=== PATIENT | male | born 1940 | race Caucasian/White ===

== ENCOUNTER 2016-07-28 22:53 | Emergency (ER) | payer MEDICARE, OTHER ==
[2016-07-28 23:03] VITALS: BP 178/87
--- NOTE | 2016-07-28 23:07 | EDM.PDOC ---
ED HISTORY OF PRESENT ILLNESS - General Chief Complaint: Cardiovascular Problem Stated Complaint: HEART RACING Time Seen by Provider: 07/28/16 23:04 Source of Information: Reports: Patient History Limitations: Reports: No limitations - History of Present Illness INITIAL COMMENTS - FREE TEXT/NARRATIVE: c/o heart racing since last night not going away. denies CP/SOB per-se. had problem before awhile back. - Related Data Allergies/ADRs: Allergies Allergy/AdvReac Type Severity Reaction Status Date / Time No Known Allergies Allergy Verified 07/28/16 23:03 Home Meds: Home Meds Albuterol Sulfate [Proair Respiclick] 1 puff INH Q4HR PRN 12/27/14 [History] Albuterol [Ventolin HFA] 2 puff INH Q6HR PRN 12/27/14 [History] Aspirin [Adult Low Dose Aspirin EC] 1 tab PO DAILY 12/27/14 [History] Kvng Cit/Mag/D3/Zn/Roll Former/Eduin/Bor [Citracal-Vit D + Magnesium] 2 tab PO DAILY 12/27 [History] FA/Lycopene/Lut/MV,Ca,Iron,Min [Centrum] 1 tab PO DAILY 12/27/14 [History] Finasteride [Finasteride] 1 tab PO DAILY 12/27/14 [History] Fluticasone/Salmeterol [Advair Diskus 500-50] 1 puff INH BID 12/27/14 [History] Losartan [Cozaar] 1 tab PO DAILY 12/27/14 [History] Omeprazole [Omeprazole] 1 tab PO DAILY 12/27/14 [History] Psyllium with Sucrose [Metamucil] 1 packet PO ASDIRECTED 12/27/14 [History] Saw Eidson Fruit [Saw Eidson] 1 tab PO DAILY 12/27/14 [History] Tiotropium [place] [Spiriva] 1 puff INH DAILY 12/27/14 [History] atorvaSTATin [Lipitor] 1 tab PO BEDTIME 12/27/14 [History] Ubidecarenone [Co Q-10] 1 tab PO DAILY 12/29/14 [History] Past Medical History Other Respiratory History: lung nodule, emphysema Other Gastrointestinal History: Soliz's esophagus Other Genitourinary History: Nephrolithiasis Other Musculoskeletal History: R) leg fx yrs ago Social & Family History - Tobacco Use Smoking Status *Q: Former Smoker Years of Tobacco use: 30 Month Tobacco Last Used: 1994 Second Hand Smoke Exposure: No - Recreational Drug Use Recreational Drug Use: No ED ROS GENERAL - Review of Systems Review Of Systems: ROS reveals no pertinent complaints other than HPI. ED EXAM, GENERAL - Physical Exam Exam: See Below Exam Limited By: No limitations General Appearance: alert, WD/WN, no apparent distress Ears: hearing grossly normal Throat/Mouth: Normal voice, No airway compromise Head: atraumatic Neck: non-tender, full range of motion Respiratory/Chest: no respiratory distress Cardiovascular: regular rate, rhythm GI/Abdominal: soft, non tender Neurological: alert, oriented, normal cognition, normal gait, no motor/sensory deficits Psychiatric: flat affect Skin Exam: Warm, Dry Lymphatic: no adenopathy Course - Vital Signs Last Recorded V/S: Last Vital Signs Temp 36.3 C 07/28/16 23:00 Pulse 109 H 07/28/16 23:00 Resp 18 07/28/16 23:00 BP 178/87 H 07/28/16 23:00 Pulse Ox 93 L 07/28/16 23:00 - Orders/Labs/Meds Orders: Active Orders 24 hr Category Date Time Status EKG 12 Lead [EKG Documentation Completion] [RC] STAT Care 07/28/16 23:04 Active Labs: Laboratory Tests 07/28/16 07/28/16 07/28/16 Range/Units 23:12 23:12 23:12 WBC 18.7 H (5.0-10.0) 10^3/uL RBC 4.52 L (4.6-6.2) 10^6/uL Hgb 14.0 (14.0-18.0) g/dL Hct 40.9 (40.0-54.0) % MCV 90.5 (80-100) fL MCH 31.0 (27.0-34.0) pg MCHC 34.2 (33.0-35.0) g/dL Plt Count 215 (150-450) 10^3/uL Neut % (Auto) 82.8 H (42.2-75.2) % Lymph % (Auto) 8.5 L (20.5-50.1) % [place] % (Auto) 7.8 (2-8) % Eos % (Auto) 0.6 L (1.0-3.0) % Baso % (Auto) 0.3 (0.0-1.0) % D-Dimer, Quantitative 411 H (0-400) ng/mL Sodium 135 (135-145) mmol/L Potassium 3.7 (3.6-5.0) mmol/L Chloride 103 (101-111) mmol/L Carbon Dioxide 23.0 (21.0-31.0) mmol/L Anion Gap 12.7 BUN 15 (7-18) mg/dL Creatinine 0.9 (0.6-1.3) mg/dL Est Cr Clr Drug Dosing 68.34 mL/min Estimated GFR (MDRD) > 60 BUN/Creatinine Ratio 16.66 Glucose 127 H (74-105) mg/dL Calcium 8.5 (8.4-10.2) mg/dl Total Bilirubin 0.6 (0.2-1.0) mg/dL AST 19 (10-42) IU/L ALT 16 (10-60) IU/L Alkaline Phosphatase 81 (42-121) IU/L Troponin I < 0.02 (0.00-0.02) ng/ml B-Natriuretic Peptide 14 (0-100) pg/ml Total Protein 6.9 (6.7-8.2) g/dl Albumin 3.8 (3.2-5.5) g/dl Globulin 3.1 Albumin/Globulin Ratio 1.23 Urine Color (YELLOW) Urine Appearance (CLEAR) Urine pH (5.0-9.0) Ur Specific [place] (1.005-1.030) Urine Protein (NEGATIVE) Urine Glucose (UA) (NEGATIVE) Urine Ketones (NEGATIVE) Urine Occult Blood (NEGATIVE) Urine Nitrite (NEGATIVE) Urine Bilirubin (NEGATIVE) Urine Urobilinogen (0.2-1.0) mg/dL Ur Leukocyte Esterase (NEGATIVE) Urine RBC /HPF Urine WBC (0-5/HPF) /HPF Ur Epithelial Cells /HPF Urine Mucus /LPF 07/28/16 Range/Units 23:30 WBC (5.0-10.0) 10^3/uL RBC (4.6-6.2) 10^6/uL Hgb (14.0-18.0) g/dL Hct (40.0-54.0) % MCV (80-100) fL MCH (27.0-34.0) pg MCHC (33.0-35.0) g/dL Plt Count (150-450) 10^3/uL Neut % (Auto) (42.2-75.2) % Lymph % (Auto) (20.5-50.1) % [place] % (Auto) (2-8) % Eos % (Auto) (1.0-3.0) % Baso % (Auto) (0.0-1.0) % D-Dimer, Quantitative (0-400) ng/mL Sodium (135-145) mmol/L Potassium (3.6-5.0) mmol/L Chloride (101-111) mmol/L Carbon Dioxide (21.0-31.0) mmol/L Anion Gap BUN (7-18) mg/dL Creatinine (0.6-1.3) mg/dL Est Cr Clr Drug Dosing mL/min Estimated GFR (MDRD) BUN/Creatinine Ratio Glucose (74-105) mg/dL Calcium (8.4-10.2) mg/dl Total Bilirubin (0.2-1.0) mg/dL AST (10-42) IU/L ALT (10-60) IU/L Alkaline Phosphatase (42-121) IU/L Troponin I (0.00-0.02) ng/ml B-Natriuretic Peptide (0-100) pg/ml Total Protein (6.7-8.2) g/dl Albumin (3.2-5.5) g/dl Globulin Albumin/Globulin Ratio Urine Color Yellow (YELLOW) Urine Appearance Clear (CLEAR) Urine pH 7.0 (5.0-9.0) Ur Specific [place] 1.020 (1.005-1.030) Urine Protein 100 H (NEGATIVE) Urine Glucose (UA) Negative (NEGATIVE) Urine Ketones Negative (NEGATIVE) Urine Occult Blood Trace-intact H (NEGATIVE) Urine Nitrite Negative (NEGATIVE) Urine Bilirubin Negative (NEGATIVE) Urine Urobilinogen 0.2 (0.2-1.0) mg/dL Ur Leukocyte Esterase Negative (NEGATIVE) Urine RBC 0-5 /HPF Urine WBC Not seen (0-5/HPF) /HPF Ur Epithelial Cells Rare /HPF Urine Mucus Rare /LPF Meds: Medications Discontinued Medications Generic Name Dose Route Start Last Admin Trade Name Freq PRN Reason Stop Dose Admin Iopamidol 100 ml 07/29/16 00:43 07/29/16 01:00 Isovue-370 (76%) IVPUSH 07/29/16 00:44 100 ml ONETIME ONE Administration - Re-Assessments/Exams Free Text/Narrative Re-Assessment/Exam: 07/29/16 02:39 results discussed with Pt & spouse who states Pt was busy with hiding easter eggs yesterday and probably over worked. Pt feels fine now and wants to go home. Departure - Departure Time of Disposition: 02:40 Disposition: Home, Self-Care 01 Condition: good Clinical Impression: COPD exacerbation Instructions: Palpitations, [id number] Forms: ED Department Discharge Additional Instructions: 1) rest and avoid vigorous activities next 48 hours 2) follow up at clinic or recheck as needed - My Orders Last 24 Hours: My Active Orders 07/28/16 23:04 EKG 12 Lead [EKG Documentation Completion] [RC] STAT - Assessment/Plan Last 24 Hours: My Active Orders 07/28/16 23:04 EKG 12 Lead [EKG Documentation Completion] [RC] STAT
[2016-07-28 23:36] LABS: CHLORIDE,CL 103 mmol/L (101-111); SODIUM,NA 135 mmol/L (135-145)
[2016-07-29] MEDS ORDERED: Iopamidol 755 Mg/ML 100 ML Bottle IVPUSH ONE (00:43)
--- NOTE | 2016-07-30 13:19 | EKG ---
07/28/2016- MARCELO RAMIREZ - EKG per my reading shows sinus rhythm at the rate of [address]. [facility] /[id number]
== END 2016-07-29 02:44 | disposition home or self-care (01) ==
LOC: DL.ED 22:53
DX: J44.1 Chronic obstructive pulmonary disease with (acute) exacerbation (principal); Z79.82 Long term (current) use of aspirin; Z79.899 Other long term (current) drug therapy; Z87.891 Personal history of nicotine dependence
CPT/HCPCS: 36415; 71020; 71260; 80053; 81001; 83880; 84484; 85025; 85379; 87804; 93005; 93010; 99285; Q9967; 99283

== ENCOUNTER 2023-12-15 23:00 | Inpatient (IN) | payer MEDICARE, OTHER ==
[2023-12-15 23:21] LABS: BASOPHILS PERCENT AUTO 0.2 % (0.0-1.0); EOSINOPHILS PERCENT AUTO 0.7 % (1.0-3.0); HEMATOCRIT 44.5 % (40.0-54.0); HEMOGLOBIN 14.5 g/dL (14.0-18.0); LYMPHOCYTES PERCENT AUTO 6.3 % (20.5-50.1); MEAN CORPUSCULAR HGB CONC 32.6 g/dL (33.0-35.0); MEAN CORPUSCULAR VOLUME 91.9 fL (80-100); NEUTROPHILS PERCENT AUTO 91.8 % (42.2-75.2); PLATELET COUNT,PLT 212 10^3/uL (150-450); RED BLOOD CELL COUNT 4.84 10^6/uL (4.6-6.2); WHITE BLOOD CELL COUNT,WBC 8.8 10^3/uL (5.0-10.0)
[2023-12-15 23:33] LABS: APPEARANCE,URINE CLEAR (CLEAR); BILIRUBIN,URINE NEGATIVE (NEGATIVE); COLOR,URINE YELLOW (YELLOW); GLUCOSE,URINE NEGATIVE (NEGATIVE); KETONES,URINE NEGATIVE (NEGATIVE); LEUKOCYTE ESTERASE,URINE NEGATIVE (NEGATIVE); NITRITE,URINE NEGATIVE (NEGATIVE); OCCULT BLOOD,URINE NEGATIVE (NEGATIVE); PROTEIN,URINE NEGATIVE (NEGATIVE); UROBILINOGEN,URINE 0.2 mg/dL (0.2-1.0)
[2023-12-15 23:41] LABS: B-TYPE NATRIURETIC PEPTIDE,BNP 15 pg/ml (0-100)
[2023-12-15 23:45] LABS: A/G RATIO 1.1; ALANINE AMINOTRANSFERASE,ALT 31 U/L (16-63); ALBUMIN 3.5 g/dL (3.4-5.0); ALKALINE PHOSPHATASE 101 U/L (46-116); ANION GAP 11.6 mEq/L (7-13); ASPARTATE AMNIOTRANSFERASE,AST 17 U/L (15-37); BILIRUBIN TOTAL 0.4 mg/dL (0.2-1.0); BLOOD UREA NITROGEN,BUN 18 mg/dL (7-18); BUN/CREATININE RATIO 16.5 (No establ ref range); CALCIUM 9.1 mg/dL (8.5-10.1); CARBON DIOXIDE,CO2 28 mmol/L (21-32); CHLORIDE,CL 104 mmol/L (98-107); CREATININE 1.09 mg/dL (0.70-1.30); EST CRCL DRUG DOSING (CG) 47.96 mL/min; GLUCOSE RANDOM 119 mg/dL (70-99); MAGNESIUM 1.8 mg/dL (1.8-2.4); POTASSIUM,K 3.6 mmol/L (3.5-5.1); PROTEIN TOTAL,TP 6.6 g/dL (6.4-8.2); SODIUM,NA 140 mmol/L (136-145)
[2023-12-15 23:49] LABS: ESTIMATED GFR 68 mL/min (>=60); ETHANOL BLOOD MEDICAL < 3 mg/dL (0)
[2023-12-15 23:51] LABS: LACTIC ACID 2.1 mmol/L (0.4-2.0)
[2023-12-16] MEDS: cefTRIAXone 1 GM Vial IVPUSH ONE (00:15)
[2023-12-16] MEDS: Sodium Chloride 0.9% 2,000 ML IV ONE (00:15)
[2023-12-16] MEDS: Albuterol/Ipratropium 3.0-0.5 MG/3 ML Neb Soln NEB ONE (00:15)
[2023-12-16] MEDS: methylPREDNISolone Sodium Succinate 125 MG/2 ML SDV IVPUSH ONE (00:15)
[2023-12-16] MEDS: Levothyroxine 50 MCG Tab PO ONE (00:37)
[2023-12-16] MEDS: Azithromycin 500 MG in Sodium Chloride 0.9% 250 ML IV ONE (01:44)
[2023-12-16] MEDS ORDERED: oxyCODONE 5 MG Tab PO PRN (09:21)
[2023-12-16] MEDS ORDERED: Ondansetron 4 MG/2 ML SDV IVPUSH PRN (09:21)
[2023-12-16] MEDS ORDERED: Docusate Sodium 100 MG Cap PO PRN (09:21)
[2023-12-16] MEDS ORDERED: Albuterol 0.083% 2.5 MG/3 ML Neb Soln NEB PRN (09:21)
[2023-12-16] MEDS ORDERED: Albuterol 6.7 GM Inhaler INH PRN (09:26)
[2023-12-16] MEDS ORDERED: Non-Formulary Medication 1 Each (Alendronate Sodium [Alendronate Sodium] 70 MG Tablet) PO SCH (09:30)
[2023-12-16] MEDS: Omeprazole 20 MG Cap.CR PO SCH (10:27)
[2023-12-16] MEDS: Diltiazem 120 MG Cap.CD PO SCH (10:28)
[2023-12-16] MEDS: Psyllium Husk (3 in 1 Daily Fiber) 0.4 GM Cap PO SCH (10:29)
[2023-12-16] MEDS: methylPREDNISolone Sodium Succinate 40 MG/1 ML SDV IVPUSH SCH (10:30)
[2023-12-16] MEDS: cefTRIAXone 1 GM Vial IV SCH (10:34)
[2023-12-16] MEDS: Azithromycin 500 MG in Sodium Chloride 0.9% 250 ML IV SCH ×2 (10:44→21:48)
[2023-12-16] MEDS: Formoterol/Mometasone 200-5 MCG 8.8 GM Inhaler INH SCH (17:17)
[2023-12-16] MEDS: Levothyroxine 50 MCG Tab PO SCH (21:31)
[2023-12-16] MEDS: atorvaSTATin 20 MG Tab PO SCH (21:32)
[2023-12-16] MEDS: Losartan 50 MG Tab PO SCH (21:36)
[2023-12-17] MEDS: Sodium Chloride 0.9% 10 ML Syringe FLUSH PRN (03:55)
[2023-12-17] MEDS: Omeprazole 20 MG Cap.CR PO SCH (05:43)
[2023-12-17 06:05] LABS: BASOPHILS PERCENT AUTO 0.2 % (0.0-1.0); HEMATOCRIT 39.6 % (40.0-54.0); HEMOGLOBIN 12.9 g/dL (14.0-18.0); MEAN CORPUSCULAR HEMOGLOBIN 30.4 pg (27.0-34.0); MEAN CORPUSCULAR HGB CONC 32.6 g/dL (33.0-35.0); MEAN CORPUSCULAR VOLUME 93.2 fL (80-100); MONOCYTES PERCENT AUTO 3.2 % (2-8); NEUTROPHILS PERCENT AUTO 91.6 % (42.2-75.2); PLATELET COUNT,PLT 220 10^3/uL (150-450); RED BLOOD CELL COUNT 4.25 10^6/uL (4.6-6.2); WHITE BLOOD CELL COUNT,WBC 18.1 10^3/uL (5.0-10.0)
[2023-12-17 06:21] LABS: ANION GAP 15.1 mEq/L (7-13); CREATININE 1.05 mg/dL (0.70-1.30); EST CRCL DRUG DOSING (CG) 49.79 mL/min; POTASSIUM,K 4.1 mmol/L (3.5-5.1)
[2023-12-17] MEDS ORDERED: UBIDECARENONE 10 MG PO SCH (09:00)
[2023-12-17] MEDS: Calcium Carbonate/Vitamin D3 1250 MG-5 MCG Tab PO SCH (09:57)
[2023-12-17] MEDS: Tamsulosin 0.4 MG Cap.ER PO SCH (09:57)
[2023-12-17] MEDS: Finasteride 5 MG Tab PO SCH (09:57)
[2023-12-17] MEDS: Enoxaparin 40 MG/0.4 ML Syringe SUBCUT SCH (09:59)
[2023-12-17] MEDS ORDERED: Sodium Chloride 0.9% 100 ML IV PRN (10:02)
[2023-12-17 11:30] VITALS: BP 123/75; PULSE 53
== END 2023-12-17 12:05 | disposition home or self-care (01) | DRG 190 ==
LOC: DL.ED 23:00 → DL.MS 12-16 00:15 → UNDOADMIN 12-16 00:40 → DL.MS 12-16 00:40 → UNDODISIN 12-17 12:05
PROVIDERS: ADMIT Internal Medicine; ATTEND Internal Medicine
DX: J44.1 Chronic obstructive pulmonary disease with (acute) exacerbation (principal); A41.9 Sepsis, unspecified organism; J18.9 Pneumonia, unspecified organism; J44.0 Chronic obstructive pulmonary disease with (acute) lower respiratory infection; I10 Essential (primary) hypertension; Z90.49 Acquired absence of other specified parts of digestive tract; N40.0 Benign prostatic hyperplasia without lower urinary tract symptoms; E78.00 Pure hypercholesterolemia, unspecified; J43.9 Emphysema, unspecified; K22.70 Barrett's esophagus without dysplasia; H91.90 Unspecified hearing loss, unspecified ear; E86.9 Volume depletion, unspecified; R09.02 Hypoxemia; Z79.82 Long term (current) use of aspirin; Z86.16 Personal history of COVID-19; Z90.89 Acquired absence of other organs; Z79.899 Other long term (current) drug therapy; Z79.890 Hormone replacement therapy; Z98.890 Other specified postprocedural states; Z87.891 Personal history of nicotine dependence
CPT/HCPCS: 36415; 71045; 80048; 80053; 80307; 81003; 83605; 83735; 83880; 84484; 85025; 87040; 87804; 93005; 93010; 97161-GP; 97165-GO; 99222; 99239; 99285; A9270-GY; J0456; J0696; J1650; J2919; J3490; J7030; J7050; J7620-GY; U0002